=== PATIENT | female | born 1970 | race Caucasian/White ===

== ENCOUNTER 2018-01-31 15:55 | Emergency (ER) | payer OTHER ==
[~2018-01-31] VITALS: Ht 157.5 cm; Wt 49.9 kg
[2018-01-31 16:09] VITALS: BP 113/68
[2018-01-31] MEDS ORDERED: ZYRTEC10 M5 (16:11)
[2018-01-31] MEDS ORDERED: FLEXERIL PO (16:11)
[2018-01-31] MEDS ORDERED: NAPROSYN500 MG PO (16:22)
[2018-01-31] MEDS ORDERED: NORCO 5-325 TA1 EACH PO (16:22)
[2018-01-31] MEDS ORDERED: VALIUM5 MG PO (16:22)
== END 2018-01-31 16:28 | disposition home or self-care (01) ==
LOC: M.ERS 15:55
DX: S46.811A Strain of other muscles, fascia and tendons at shoulder and upper arm level, right arm, initial encounter (principal); Z88.0 Allergy status to penicillin; X58.XXXA Exposure to other specified factors, initial encounter; Y93.89 Activity, other specified; Y92.89 Other specified places as the place of occurrence of the external cause; Y99.8 Other external cause status

== ENCOUNTER 2019-06-30 12:30 | Emergency (ER) | payer OTHER ==
[~2019-06-30] VITALS: Ht 157.5 cm; Wt 49.9 kg
[~2019-06-30 12:30] MED LIST: FLEXERIL PO; NAPROSYN500 MG PO; NORCO 5-325 TA1 EACH PO; VALIUM5 MG PO; ZYRTEC10 M5
[2019-06-30 12:59] LABS: HEMATOCRIT 40.4 % (37.0-47.0); MCH 30.3 pg (26.0-34.0); MCHC 34.7 g/dL (28.0-37.0); MCV 87.5 fL (80.0-100.0); MPV 8.1 fl. (7.2-11.1); NUCLEATED RBCS 0 /100WBC; PLATELET COUNT* 174 thou/uL (150-400); RBC 4.62 mil/uL (4.20-5.00); RDW-CV 13.3 % (10.5-14.5); WBC 4.8 thou/uL (4.0-11.0)
[2019-06-30 13:03] LABS: INFLUENZA A ANTIGEN Positive (Negative); INFLUENZA B ANTIGEN Negative (Negative)
[2019-06-30 13:09] LABS: CALCIUM 8.8 mg/dL (8.5-10.1); CREATININE 0.6 mg/dL (0.6-1.3); POTASSIUM 3.6 mmol/L (3.5-5.1)
[2019-06-30 13:14] LABS: ALBUMIN 3.6 g/dL (3.4-5.0); TOTAL BILIRUBIN 0.7 mg/dL (<0.1-1.0); TOTAL PROTEIN 7.7 g/dL (6.4-8.2)
[2019-06-30] MEDS ORDERED: PREDNISONE 20 M20 M1 PO (13:18)
[2019-06-30] MEDS ORDERED: VENTOLIN HFA 1818 GM INH (13:18)
[2019-06-30] MEDS ORDERED: TAMIFLU75 MG PO (13:18)
[2019-06-30 13:28] VITALS: BP 136/79
[2019-06-30 13:28] LABS: ABSOLUTE LYMPHOCYTES 1.4 thou/uL (0.8-5.3); ABSOLUTE MONOCYTES 0.3 thou/uL (0.0-1.2); PLATELET ESTIMATE ADEQUATE
--- NOTE | 2019-07-01 11:06 | EKG ---
[place] [address] ELECTROCARDIOGRAM REPORT Name: HERON EASTON Room: [facility]#: [id number] Admission: 06/30/19 Attend Phys: Discharge: 06/30/19 Date of : 72 Date of Service: 06/30/19 1240 Report #: [id number] THIS REPORT FOR: //name// [facility] ED Test Date: 2019-06-30 Test Time: 12:40:47 Pat Name: HERON EASTON Department: Room: Gender: F Server Assistant: : 1970 Requested By: Yonas Malone Order Number: [id number] MD: Calin Westbrook Measurements Intervals [place] Rate: 135 P: 76 [place]: 119 QRS: 28 QRSD: 74 T: 35 QT: 286 QTc: 429 Interpretive Statements Sinus tachycardia Multiple premature complexes, supraven Consider right atrial enlargement No previous ECG available for comparison Electronically Signed On 07-01-2019 11:05:22 ENVIRONMENTAL [employer]AD by Calin Westbrook [email or web address] <ELECTRONICALLY SIGNED> By: Calin Westbrook MD, [facility] 07/01/19 1105 1240 1240 Calin Westbrook MD, FACC /EPI
== END 2019-06-30 13:29 | disposition home or self-care (01) ==
LOC: M.ERS 12:30
PROVIDERS: Family Medicine
DX: J10.1 Influenza due to other identified influenza virus with other respiratory manifestations (principal); R00.0 Tachycardia, unspecified; Z88.0 Allergy status to penicillin

== ENCOUNTER 2020-12-26 06:21 | Observation (INO) | payer OTHER ==
[~2020-12-26] VITALS: Ht 157.5 cm; Wt 52.2 kg
--- NOTE | ~2020-12-26 | OP ---
[facility] [address] [place] [address] OPERATIVE REPORT Name: HERON EASTON Room: [facility]#: [id number] Admission: 12/26/20 Attend Phys: Yariel Chaves Discharge: Date of : 72 Report #: [id number] THIS REPORT FOR: cc: Becki Herrera MD,Becki Chaves,Yariel Warren MD ~ DATE OF SURGERY: 12/26/2020 PREOPERATIVE DIAGNOSIS: Symptomatic cholelithiasis. POSTOPERATIVE DIAGNOSIS: Symptomatic cholelithiasis. OPERATION: Laparoscopic cholecystectomy. SURGEON: Yariel Chaves MD ANESTHESIA: General. ESTIMATED BLOOD LOSS: Minimal. SPECIMENS: Gallbladder. DESCRIPTION OF PROCEDURE: After informed consent was obtained, the patient was brought to the operating room and placed supine. SCDs were placed and working, preoperative antibiotics were administered, general anesthesia was induced. The abdomen was prepped and draped in the usual sterile fashion. A 10 mm incision was made below the umbilicus. Fascia was incised and a trocar was placed. Pneumoperitoneum was established. Three right upper quadrant 5 mm trocars were placed under direct vision. The gallbladder was then grasped and retracted superiorly. The infundibulum was grasped and retracted laterally. I dissected out the cystic duct and cystic artery. Cystic duct and artery were clipped and ligated leaving 2 clips on the remaining duct and one on the remaining artery. Gallbladder was then taken off the liver bed with electrocautery. It was placed into an Endopouch and removed. The fascia was then closed with a deynfm-nk-mlgof 0 Vicryl. Skin was closed with 4-0 Monocryl. Incisions were dressed with Steri-Strips. COMPLICATIONS: None. DISPOSITION: The patient was taken to recovery in satisfactory condition. By: [id number] Chaves MD /nt
[~2020-12-26 06:21] MED LIST changes: +HYDROCODON-ACE1 EAC7 PO; +LEVSIN0.125 MG PO; +PREDNISONE 20 M20 M1 PO; +TAMIFLU75 MG PO; +VENTOLIN HFA 1818 GM INH
[2020-12-26 12:15] VITALS: BP 132/71
[2020-12-26 16:07] VITALS: BP 139/73
[2020-12-26 20:00] VITALS: BP 143/65
[2020-12-27 01:00] VITALS: BP 124/65; BP 124/665
[2020-12-27 06:42] VITALS: BP 134/6
[2020-12-27 08:10] VITALS: BP 142/54
[2020-12-27 12:49] VITALS: BP 142/54
--- NOTE | 2020-12-27 13:30 | NUR ---
PATIENT DISCHARGED TO HOME. DISCHARGE PAPERS REVIEWED AND SIGNED. PRESCRIPTION AND INFORMATION SHEETS GIVEN. IV REMOVED. PATIENT INSISTENT ON DRIVING SELF HOME. TAXI OFFERED BUT REFUSED. TALKED TO DR MENENDEZ AND OK WITH DRIVING SELF. LAST PAIN MEDICATION WAS 1 HYDROCODONE AT 0820. PATIENT IS UP AD MELANIE WITH STEADY GAIT, DENIES ANY PAIN AT THIS TIME. PATIENT DENIES ANY FURTHER NEEDS. PATIENT TAKEN TO EXIT. LEFT BY OWN VEHICLE.
[2020-12-27 14:00] VITALS: BP 142/54
--- NOTE | 2020-12-29 15:07 | PATH ---
[address] [address] PATHOLOGY RPT PROCEDURE Name: HERON EASTON Room: [address] Lillie Denney#: [id number] Admission: 12/26/20 Date of : 72 Discharge: 12/27/20 Report #: [id number] Path Case #: [id number] [facility] Accession Number: [id number] . 01 Material submitted: . gallbladder - GALLBLADDER . 01 Clinical history: . CALCULUS OF GALLBLADDER . 02 Diagnosis: Gallbladder: - Chronic cholecystitis with fundal diverticulum. - See comment. (HELLEN:james; 12/29/2020) [facility] 12/29/2020 1205 Local . 02 Comment: No gallstones are identified in the submitted specimen. (HELLEN:james; 12/29/2020) . . 02 Electronically signed: . Fernando Holland MD, Pathologist NPI- [id number] . 01 Gross description: . Fixative: Formalin Labeled: Gallbladder Specimen received: Intact cholecystectomy specimen Dimensions: 6.7 x 2.8 x 2.6 cm Serosa: Macias-pink and smooth Lymph node: None identified Mucosa: Dark green and velvety Average wall thickness: 0.1-0.2 cm Calculi: None identified within the gallbladder or container Abnormalities: There is a multiloculated cystic area within the wall of the fundus measuring 1.3 x 1.3 x 0.5 cm A1- Spot Welder Body Assembly body, fundus with cystic area, and the cystic duct margin. ([facility]; 12/28/2020) [facility] 12/28/2020 0826 Local . 02 Pathologist provided ICD-10: K81.1 . 02 CPT . 776054 Specimen Comment: A courtesy copy of this report has been sent to [phone] [place] [address] PATHOLOGY RPT PROCEDURE Name: HERON EASTON Room: [address] Lillie Denney#: [id number] Admission: 12/26/20 Date of : 72 Discharge: 12/27/20 Report #: [id number] Path Case #: [id number] Specimen Comment: Report sent to DR. BUTLER Performed at: 01 [facility] [place] [address], [place], [place] [id number] MD Melo Ward MD Phone: [phone] Performed at: 02 [facility] [address], [place], [place] [id number] MD Fernando Holland MD Phone: [phone]
== END 2020-12-27 13:30 | disposition home or self-care (01) ==
LOC: M.SUR 06:21 → M.2W 11:57 → M.SUR 15:11 → M.2W 12-27 13:30
PROVIDERS: ADMIT Surgery; ATTEND Surgery
DX: K80.20 Calculus of gallbladder without cholecystitis without obstruction (principal); Z20.822 Contact with and (suspected) exposure to COVID-19; E05.00 Thyrotoxicosis with diffuse goiter without thyrotoxic crisis or storm; Z88.0 Allergy status to penicillin; Z79.899 Other long term (current) drug therapy